=== PATIENT | female | born 1950 ===

== ENCOUNTER 2019-11-05 05:37 | Day surgery (SDC) | payer OTHER ==
[~2019-11-05 05:37] MED LIST: CARVEDILOL25 MG; COZAAR25 MG PO
[2019-11-05] MEDS ORDERED: MACROBID 100 M100 MG PO (10:08)
[2019-11-05] MEDS ORDERED: ULTRACET PO (10:08)
== END 2019-11-05 15:50 | disposition home or self-care (01) ==
LOC: CIR.AMB 05:37 → ADM 09:15 → CIR.AMB 15:50
PROVIDERS: ATTEND Obstetrics & Gynecology Gynecology
DX: N81.6 Rectocele (principal); N81.5 Vaginal enterocele; Z20.828 Contact with and (suspected) exposure to other viral communicable diseases